=== PATIENT | male | born 1960 | race Caucasian/White ===

== ENCOUNTER 2024-06-26 22:28 | Emergency (ER) | payer BC ==
[~2024-06-26] VITALS: Ht 182.8 cm; Wt 81.6 kg
[2024-06-26] MEDS ORDERED: METOPROLOL SUCC50 M1 PO (22:37)
[2024-06-26] MEDS ORDERED: ELIQUIS5 M1 PO (22:38)
[2024-06-26] MEDS ORDERED: NORVASC2.5 MG PO (22:38)
[2024-06-26] MEDS ORDERED: ATORVASTATIN CA40 M1 PO (22:38)
[2024-06-26] MEDS ORDERED: COZAAR50 M1 PO (22:39)
[2024-06-26] MEDS ORDERED: VIAGRA100 MG PO (22:40)
[2024-06-26 23:15] LABS: BASO # 0.1 10*3/uL (0.0-0.1); BASO % 0.7 % (0.0-1.0); EOS # 0.1 10*3/uL (0.0-0.4); EOS % 0.7 % (1.0-4.0); HEMATOCRIT 41.9 % (42.0-52.0); MEAN CELL VOLUME 89.7 fl (80.0-94.0); MEAN CORPUSCULAR HGB 31.3 pg (27.0-31.0); MEAN CORPUSCULAR HGB CONC 34.8 g/dl (33.0-37.0); MEAN PLATELET VOLUME 9.6 fl (9.6-12.3); MONO # 0.9 10*3/uL (0.1-1.0); MONO % 10.2 % (3.0-9.0); NEUT # 6.9 10*3/uL (2.3-7.9); NEUT % 77.8 % (47.0-73.0); PLATELET COUNT AUTOMATED 155 10*3/uL (130-400); RED BLOOD COUNT 4.67 10*6/uL (4.50-5.90); RED CELL DISTRI WIDTH 12.8 % (0-14.5); WHITE BLOOD COUNT 8.9 10*3/uL (4.8-10.8)
[2024-06-26 23:43] LABS: ACT PARTIAL THROMBO TIME 24.2 SECONDS (20.0-32.1)
[2024-06-26 23:44] LABS: ALKALINE PHOSPHATASE 106 U/L (46-116); BUN 12 mg/dl (9-23); CHLORIDE 101 mmol/L (98-107); ETHYL ALCOHOL 14.6 mg/dl (<3); LIPASE 71 U/L (12-53); POTASSIUM 3.6 mmol/L (3.4-5.1); SGPT/ALT 219 U/L (5-49); TOTAL PROTEIN 6.3 gm/dL (6.0-8.0)
[2024-06-27] MEDS ORDERED: SODIUM CHLORIDE 0.9% 1,000 ML IV ONE (00:45)
== END 2024-06-27 03:05 | disposition home or self-care (01) ==
LOC: ED 22:28
PROVIDERS: Internal Medicine
DX: R55 Syncope and collapse (principal); E86.0 Dehydration; R74.01 Elevation of levels of liver transaminase levels; I10 Essential (primary) hypertension; Z79.899 Other long term (current) drug therapy; Z86.73 Personal history of transient ischemic attack (TIA), and cerebral infarction without residual deficits